=== PATIENT | male | born 1970 | race Caucasian/White ===

== ENCOUNTER 2025-07-05 08:41 | Outpatient (CLI) | payer OTHER, SELFPAY ==
--- NOTE | 2025-07-05 08:51 | MR_ITS ---
WS: [id number] MRI CERVICAL SPINE NONCONTRAST HISTORY: CERVICALGIA, chronic neck pain. Loss of strength LEFT arm. COMPARISON: None available. Technique: Multiplanar, multisequence noncontrast imaging of the cervical spine. LEFT curvature of the cervical spine. Mild straightening of the normal cervical lordosis. Signal within the cervical cord is normal. Visualized posterior fossa is unremarkable. Craniocervical junction, C1 and C2 relationship, odontoid process and soft tissues are normal. C2-C3: Mild osteophytic ridging and disc bulging and facet arthritis. Mild central and moderate bilateral foraminal stenosis. C3-C4: Diffuse annular disc bulging with osteophytic ridging. Small central disc protrusion. Moderate bilateral facet joint arthropathy. Near complete effacement of CSF. Moderate central and moderate to severe bilateral foraminal stenosis due to disc osteophyte disease. C4-C5: Diffuse disc bulging with osteophytic ridging and facet arthritis. Greater facet joint arthritis and synovitis on the RIGHT. Central disc protrusion. Bilateral foraminal disc osteophyte complexes. Moderate to severe central and bilateral foraminal stenosis. Greater stenosis on the LEFT. C5-C6: Diffuse disc bulging with osteophytic ridging and facet arthritis. Bilateral foraminal disc osteophyte complexes. Mild central with moderate foraminal stenosis. C6-C7: Diffuse disc bulging with moderate LEFT proximal foraminal disc osteophyte. Complete effacement of CSF. Moderate to severe central and severe bilateral foraminal stenosis, LEFT greater than RIGHT. C7-T1: Small bilateral foraminal osteophytes and facet disease. Mild foraminal stenosis. Additional disc osteophyte complexes at T1-2 and T2-3. No central stenosis. Paraspinal soft tissues are negative. MR/MR cervical spin wo con* [id number] IMPRESSION: 1. Multilevel central and foraminal stenoses throughout the cervical spine. 2. No signal abnormality within the cord. 3. Central and foraminal stenosis due to combination of disc bulging with prot rusions, disc osteophyte complexes and facet arthritis. 4. Moderate to severe central and bilateral foraminal stenosis greater on the LEFT at C4-5. 5. Moderate to severe central and severe bilateral foraminal stenosis, LEFT gr eater than RIGHT at C6-7. 6. Mild central and moderate foraminal stenosis at C2-3 and C5-6. 7. Moderate central with moderate to severe bilateral foraminal stenosis at C3 -4.
== END 2025-07-05 08:42 | disposition home or self-care (01) ==
LOC: RAD 08:44
PROVIDERS: Family Provider Family Medicine; PCP Family Medicine
DX: M48.02 Spinal stenosis, cervical region (principal); M43.8X2 Other specified deforming dorsopathies, cervical region; M25.78 Osteophyte, vertebrae; M47.892 Other spondylosis, cervical region; M50.31 Other cervical disc degeneration, high cervical region; M50.21 Other cervical disc displacement, high cervical region; M50.321 Other cervical disc degeneration at C4-C5 level; M65.88 Other synovitis and tenosynovitis, other site; M50.221 Other cervical disc displacement at C4-C5 level; M50.322 Other cervical disc degeneration at C5-C6 level; M47.893 Other spondylosis, cervicothoracic region; M48.03 Spinal stenosis, cervicothoracic region
CPT/HCPCS: 72141

== ENCOUNTER → 2025-07-19 15:03 | Outpatient (BNVA) | payer OTHER, SELFPAY | PROVIDERS: Family Provider Family Medicine; PCP Family Medicine; Visit Provider Orthopaedic Surgery | DX: M48.061 Spinal stenosis, lumbar region without neurogenic claudication (principal); M43.16 Spondylolisthesis, lumbar region; M48.02 Spinal stenosis, cervical region; Z51.89 Encounter for other specified aftercare | CPT/HCPCS: 72050; 72110 ==